=== PATIENT | male | born 1945 | race Caucasian/White ===

== ENCOUNTER → 2016-10-11 | Outpatient (CLI) | payer BC ==
[~2016-10-11] MED LIST: ALL180 PO; AMX500 PO; ASCA500 PO; ASPCH81; ATOR10TA88 PO; CALCTAB5 PO; CHOL100010 PO; CLC100 PO; FLNIN NAE; METR1GEL3; MULT-190 PO; MULT-506 PO; OMEG10007 PO; [UNRECOGNIZED DRUG - OTHER]; osteobiflex
--- NOTE | 2016-10-11 11:30 | DIAGNOSTIC IMAGING REPORT ---
LEFT HIP UNILATERAL MIN 2 VIEWS CLINICAL HISTORY: Left hip pain COMPARISON: None. DISCUSSION: There are mild osteoarthritic changes present. No fractures are visualized. There are no erosive or destructive changes. IMPRESSION: Mild degenerative change. No fractures or destructive lesions are visualized. Electronically signed by: Maikol Garcia M.D. 10/11/2016 11:28 AM Dictated Date/Time: 10/11/2016 11:28 AM
--- NOTE | 2016-10-11 11:35 | DIAGNOSTIC IMAGING REPORT ---
LEFT FOOT 3 VIEWS HISTORY: LEFT FOOT PAIN COMPARISON: Left foot 04/28/2015. FINDINGS: No acute fracture or dislocation. The Lisfranc joint is intact. 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 Mild periprosthetic lucency at the base of the proximal phalanx of the first toe. This demonstrates up to 2 mm of lucency. This has slightly progressed in the interval. Large dorsal osteophytes at the talonavicular articulation. Tiny plantar heel spur. The bones are osteopenic. Soft tissues are unremarkable. IMPRESSION: Slight progression of the periprosthetic lucency at the first MTP joint prosthesis. This favors loosening. Electronically signed by: Shukri Hdez M.D. 10/11/2016 11:34 AM Dictated Date/Time: 10/11/2016 11:31 AM
--- NOTE | 2016-10-11 11:50 | DIAGNOSTIC IMAGING REPORT ---
RIGHT HIP 2 VIEWS CLINICAL HISTORY: Right hip pain. Arthritis. FINDINGS: AP and frog-leg views of the right hip are compared to study dated 10/10/2014. The skeletal structures are osteopenic. No fracture is seen. There is moderate arthritic change in the right hip with bony sclerosis an loss of the joint space. Spurring is noted along the femoral head. The visualized right hemipelvis appears intact. Mild sclerotic change is noted in the right sacroiliac joint. The overlying soft tissues are within normal limits. There is atherosclerotic calcification of the right femoral artery. Large right pelvic phleboliths are observed. IMPRESSION: 1. No acute bony abnormality seen in the right hip. 2. Osteopenia and arthritic change as above. This has modestly progressed from the 2015 examination. Electronically signed by: Richard Dalal M.D. 10/11/2016 11:49 AM Dictated Date/Time: 10/11/2016 11:47 AM
== END | disposition home or self-care (01) ==
LOC: C.RDSM 11:04
PROVIDERS: ATTEND Internal Medicine
DX: M79.675 Pain in left toe(s) (principal); M25.551 Pain in right hip; M85.851 Other specified disorders of bone density and structure, right thigh; R93.7 Abnormal findings on diagnostic imaging of other parts of musculoskeletal system

== ENCOUNTER 2016-12-22 04:51 | Emergency (ER) | payer BC ==
[~2016-12-22] VITALS: Ht 182.9 cm; Wt 78.9 kg
[~2016-12-22 04:51] MED LIST changes: +ATOR10TA82 PO; -ATOR10TA88 PO
[2016-12-22 05:00] VITALS: TEMP 36.5; O2SAT 99; Ht 182.9 cm; Wt 78.9 kg
[2016-12-22] MEDS ORDERED: SODIUM CHLORIDE 0.9% 1000ML 1,000 ML IV STA (05:30)
[2016-12-22 05:46] LABS: BASO % 0.6 %; BASO ABS # 0.03 K/uL (0-0.2); COMPLETE YES; EOS % 3.3 %; HEMATOCRIT 43.2 % (42-52); IG% 0.4 %; LYMPH % 32.7 %; LYMPH ABS # 1.58 K/uL (1.2-3.4); MEAN CELL VOLUME 91.3 fL (80-100); MEAN CORPUSCULAR HEMOGLOBIN 29.6 pg (25-34); MEAN CORPUSCULAR HGB CONC 32.4 g/dl (32-36); MONO % 13.3 %; NEUT % 49.7 %; PLATELET COUNT 220 K/uL (130-400); RED BLOOD COUNT 4.73 M/uL (4.7-6.1); WHITE BLOOD COUNT 4.83 K/uL (4.8-10.8)
--- NOTE | 2016-12-22 06:04 | EMERGENCY ROOM VISIT NOTE ---
History Report prepared by Roger: Talita Grossman Under the Supervision of: Dr. Vicki Vela D.O. First contact with patient: 05:05 Chief Complaint: SYNCOPE Stated Complaint: SYNCOPE Nursing Triage Summary: Patient arrived ALS for evaluation of syncopal episode. Patient reports he woke up with cramps in his hamstrings and got up to walk it off. He got to the living room and started feeling fuzzy and tried lowering himself to the floor. Patient bumped left shoulder on the way down. Denies hitting head or LOC. Patient reports working outside yesterday but drank water during work. Patient had wine with dinner but also had water. Patient reports pain in left shoulder. History of Present Illness The patient is a 71 year old male who presents to the Emergency Room via ALS for concerns about a syncopal episode occurring a few minutes prior to arrival. He woke up with cramps in his hamstrings and got up to walk. He walked about 40 feet or so when he started to become lightheaded. He attempted to lower himself to the floor but lost consciousness. He bumped his left shoulder on the way down on a CD stand. He denies hitting his head or losing consciousness. As per , the patient could only say his name when EMS had first arrived. The patient's mental status is currently at baseline, as per . The patient reports that he worked outside all day yesterday. He also had wine for dinner last night. He does not think he kept himself hydrated. He currently reports soreness in the hamstrings from the cramps. He denies any chest pain, abdominal pain, or any other complaints. He denies any blood thinners or diuretics. Source of History: patient Onset: a few minutes prior to arrival Position: other (global) Quality: other (syncopal episode) Associated Symptoms: No LOC, No chest pain, No abdominal pain Review of Systems See HPI for pertinent positives & negatives. A total of 10 systems reviewed and were otherwise negative. Past Medical & Surgical Surgical Problems: (1) H/O foot surgery (2) H/O vasectomy (3) H/O wisdom tooth extraction Family History Patient reports no known family medical history. Social History Smoking Status: Never Smoker Marital Status: Occupation Status: retired Current/Historical Medications Scheduled Amoxicillin (Amoxil *), 500 MG PO DAILY Ascorbic Acid (Vitamin C *), 500 MG PO DAILY Aspirin (Aspirin Tab-Chewable *), DAILY Atorvastatin (Lipitor), 10 MG PO DAILY Calcium (Caltrate), 600 MG PO DAILY Cholecalciferol (Vitamin D), 2,000 INTER.UNIT PO DAILY Docusate Sodium (Colace *), 100 MG PO BID Fexofenadine Hcl (Veronica *), 180 MG PO DAILY Fluticasone Propionate (Flonase Nasal Weskan *), 2 SPRAYS MATEUS DAILY Multivitamin (Multivitamin), 1 TAB PO DAILY Ocuvite Preservision (Ocuvite Preservision), 1 TAB PO DAILY Miscellaneous Medications Fish Oil (Angwin-3), 1 CAP PO Metronidazole Hcl (Metrogel) [Plexion] [osteobiflex] Allergies Coded Allergies: Tetracyclines (Unverified Allergy, Mild, hives, throat closed, 01/17/12) Physical Exam Vital Signs Date Time Temp Pulse Resp B/P (MAP) Pulse Ox O2 Delivery O2 Flow Rate FiO2 12/22/16 06:29 46 16 139/82 99 Room Air 12/22/16 06:26 47 18 139/82 99 Room Air 12/22/16 05:00 36.5 48 18 113/74 99 Room Air 12/22/16 05:00 99 Room Air 12/22/16 04:59 50 Physical Exam HEENT: Head - normocephalic and atraumatic Pupils are equal, round, and reactive to light. Extraocular eye muscles are intact, and sclera are anicteric. Nose - moist nasal mucosa without discharge. Mouth - moist buccal mucosa. Oropharynx is nonerythematous and there is no tonsillar exudate or edema noted. Neck: Supple; no JVD, nuchal rigidity, cervical lymphadenopathy. Heart: Bradycardic rate and regular rhythm. There is a normal S1 and S2 with no murmurs, clicks, or gallops appreciated. Lungs: Clear to auscultation bilaterally with no wheezes, rales, or rhonchi. Abdomen: Soft, completely nontender, nondistended, with good bowel sounds. There are no palpable pulsatile masses or hepatosplenomegaly. There is no guarding, rigidity, or rebound noted. Back: Abrasion on the left shoulder. Extremities: No evidence of cyanosis, clubbing, or edema. There are easily palpable peripheral pulses. Skin: warm and dry with good turgor and no rashes. Medical Decision & Procedures Laboratory Results 12/22/16 05:30 Red Blood Count 4.73, Mean Corpuscular Volume 91.3, Mean Corpuscular Hemoglobin 29.6, Mean Corpuscular Hemoglobin Concent 32.4, Mean Platelet Volume 10.0, Neutrophils (%) (Auto) 49.7, Lymphocytes (%) (Auto) 32.7, Monocytes (%) (Auto) 13.3, Eosinophils (%) (Auto) 3.3, Basophils (%) (Auto) 0.6, Neutrophils # (Auto ) 2.40, Lymphocytes # (Auto) 1.58, Monocytes # (Auto) 0.64, Eosinophils # (Auto ) 0.16, Basophils # (Auto) 0.03 12/22/16 05:30 Test 12/22/16 05:30 12/22/16 06:15 White Blood Count 4.83 K/uL (4.8-10.8) Red Blood Count 4.73 M/uL (4.7-6.1) Hemoglobin 14.0 g/dL (14.0-18.0) Hematocrit 43.2 % (42-52) Mean Corpuscular Volume 91.3 fL (80-100) Mean Corpuscular Hemoglobin 29.6 pg (25-34) Mean Corpuscular Hemoglobin Concent 32.4 g/dl (32-36) Platelet Count 220 K/uL (130-400) Mean Platelet Volume 10.0 fL (7.4-10.4) Neutrophils (%) (Auto) 49.7 % Lymphocytes (%) (Auto) 32.7 % Monocytes (%) (Auto) 13.3 % Eosinophils (%) (Auto) 3.3 % Basophils (%) (Auto) 0.6 % Neutrophils # (Auto) 2.40 K/uL (1.4-6.5) Lymphocytes # (Auto) 1.58 K/uL (1.2-3.4) Monocytes # (Auto) 0.64 K/uL (0.11-0.59) Eosinophils # (Auto) 0.16 K/uL (0-0.5) Basophils # (Auto) 0.03 K/uL (0-0.2) RDW Standard Deviation 48.3 fL (36.4-46.3) RDW Coefficient of Variation 14.3 % (11.5-14.5) Immature Granulocyte % (Auto) 0.4 % Immature Granulocyte # (Auto) 0.02 K/uL (0.00-0.02) Anion Gap 8.0 mmol/L (3-11) Est Creatinine Clear Calc Drug Dose 86.0 ml/min Estimated GFR () 101.1 Estimated GFR (Non- 87.2 BUN/Creatinine Ratio 22.7 (10-20) Calcium Level 8.5 mg/dl (8.5-10.1) Total Bilirubin 0.2 mg/dl (0.2-1) Aspartate Amino Transf (AST/SGOT) 48 U/L (15-37) Alanine Aminotransferase (ALT/SGPT) 41 U/L (12-78) Alkaline Phosphatase 89 U/L (45-117) Total Protein 7.1 gm/dl (6.4-8.2) Albumin 3.7 gm/dl (3.4-5.0) Globulin 3.4 gm/dl (2.5-4.0) Albumin/Globulin Ratio 1.1 (0.9-2) Urine Color YELLOW Urine Appearance CLEAR (CLEAR) Urine pH 7.0 (4.5-7.5) Urine Specific Harrison 1.020 (1.000-1.030) Urine Protein NEG (NEG) Urine Glucose (UA) NEG (NEG) Urine Ketones TRACE (NEG) Urine Occult Blood NEG (NEG) Urine Nitrite NEG (NEG) Urine Bilirubin NEG (NEG) Urine Urobilinogen NEG (NEG) Urine Leukocyte Esterase NEG (NEG) Laboratory results per my review. Medications Administered Medications (Trade) Dose Ordered Sig/Delmi Route Start Time Stop Time Status Last Admin Dose Admin Sodium Chloride 1,000 ml @ 999 mls/hr Q1H1M STAT IV 12/22/16 05:30 12/22/16 06:30 DC 12/22/16 05:30 999 MLS/HR Procedure Sodium Chloride 1000 ml @ 999 mls/hr IV ECG Indication: syncope Rate (beats per minute): 48 Rhythm: sinus bradycardia Findings: no acute ischemic change, no ectopy Comparison ECG Date: January 17, 2012 Change: no significant change ED Course 0505: Past medical records reviewed. The patient was evaluated in room A02. A complete history and physical exam was performed. Laboratory studies were drawn as above. Patient was found to have normal blood pressure on screening and does not require follow-up. I attest that I have personally reviewed the patient's current medication list. 0530: Sodium Chloride 1000 ml @ 999 mls/hr IV 0614: I reevaluated the patient who is feeling much better. He drank 2 Gatorades and 2 glasses of water. He also urinated. I am waiting on the urine dip results. 0630: I discussed findings and results with him. He verbalized agreement of the treatment plan. He was discharged home. Medical Decision The patient presents to the Emergency Room for concerns about a syncopal episode. Differential diagnosis includes but is not limited to dehydration, cardiac dysrhythmia, heart block, syncope. His labs showed normal white count, stable H&H, elevated BUN at 20, creatinine at 0.8, glucose of 82, AST mildly elevated at 48. Urine dip shows trace ketones. This is a 71-year-old male patient who had a syncopal event at home after being awoken with leg cramps and attempting to get up and walk around. The patient was noted to be dehydrated with an elevated BUN and ketonuria. He received IV crystalloid therapy and was able to drink without any difficulty. Impression Primary Impression: Syncope Additional Impression: Dehydration Scribe Attestation The scribe's documentation has been prepared under my direction and personally reviewed by me in its entirety. I confirm that the note above accurately reflects all work, treatment, procedures, and medical decision making performed by me. Departure Information Dispostion Home / Self-Care Referrals Pramod Sutton M.D. (PCP) Forms HOME CARE DOCUMENTATION FORM, IMPORTANT VISIT INFORMATION Patient Instructions Dehydration, My [facility], Syncope, Syncope Tx Prevent Additional Instructions Rest. Take plenty of clear liquids, especially in warm weather. Use tylenol for any shoulder pain Problem Qualifiers
[2016-12-22 06:05] LABS: BUN/CREATININE RATIO 22.7 (10-20); CALCIUM 8.5 mg/dl (8.5-10.1); CREATININE 0.89 mg/dl (0.60-1.40); POTASSIUM 3.9 mmol/L (3.5-5.1)
[2016-12-22 06:08] LABS: ALB/GLOB RATIO 1.1 (0.9-2)
[2016-12-22 06:29] VITALS: BP 139/82; PULSE 46; O2SAT 99
[2016-12-22 06:30] LABS: URINE APPEARANCE CLEAR (CLEAR); URINE BILIRUBIN NEG (NEG); URINE COLOR YELLOW; URINE NITRITE NEG (NEG); UROBILINOGEN NEG (NEG)
[2016-12-22 06:42] LABS: MANUAL MICROSCOPIC REQUIRED? NO; REVIEW REQ? NO
== END 2016-12-22 06:29 | disposition home or self-care (01) ==
LOC: EDBD 04:51 → C.EDA 04:52
DX: R55 Syncope and collapse (principal); E86.0 Dehydration; R00.1 Bradycardia, unspecified; Z79.82 Long term (current) use of aspirin; Z79.899 Other long term (current) drug therapy

== ENCOUNTER → 2017-06-24 | Outpatient (CLI) | payer BC ==
--- NOTE | 2017-06-24 14:11 | DIAGNOSTIC IMAGING REPORT ---
RIGHT ELBOW 3 VIEWS CLINICAL HISTORY: Right elbow pain. FINDINGS: 3 views of the right elbow are compared to study dated 11/30/2008. The skeletal structures are osteopenic. No fracture is seen. The joint spaces of the elbow are well-maintained. There is no joint effusion. Mild dorsal soft tissue swelling is noted. IMPRESSION: There is no radiographic evidence of right elbow fracture. Electronically signed by: Richard Dalal M.D. 06/24/2017 2:10 PM Dictated Date/Time: 06/24/2017 2:07 PM
== END | disposition home or self-care (01) ==
LOC: C.RDSM 13:00
PROVIDERS: ATTEND Internal Medicine
DX: M25.521 Pain in right elbow (principal)

== ENCOUNTER 2020-11-16 12:22 | Observation (INO) ==
--- NOTE | 2020-11-16 13:18 | Emergency Department Note ---
History of Present Illness General Chief complaint: Abdominal Pain Stated complaint: RUQ Abd pain Time Seen by Provider: 11/16/20 13:01 Source: patient History of Present Illness Provider complaint: Right-sided abdominal pain Onset (ago): hour(s) Location: abdomen and right Radiation: other (Chest) Pain Consistency: + now resolved Current Pain Intensity: 0 Quality: + sharp Relieved By: + none Associated symptoms: + weakness (Generalized weakness); no cough, no diaphoresis, no fever/chills, no nausea/vomiting and no shortness of breath This is a 75-year-old male with a history of a hiatal hernia presenting with right-sided abdominal pain starting at approximately 11:15 AM today. The patient was taking a shower when this occurred. He did have breakfast earlier in the day which consisted of a low-fat smoothie. He states the pain was very sharp and located in the right upper abdomen. It did radiate into his lower chest and epigastric region. He states that it lasted for few minutes but he started to feel very lightheaded and weak and had to sit down. Eventually his symptoms subsided. Currently he states he has some discomfort to his lower chest which he describes as a muscle pull. His abdominal pain is completely resolved. He denies any history of cardiac disease. He states that he walks on a regular basis and does not get any chest or belly discomfort when he does so. He denies any fever, diaphoresis, cough, shortness of breath, vomiting, diarrhea, black or bloody stools, urinary symptoms or leg swelling or pain. Home Medications Medication Instructions Recorded Confirmed Type Caltrate + D3 Plus Minerals 1 tab PO DAILY 02/25/19 11/16/20 History Centrum Silver Men 1 tab PO DAILY 02/25/19 11/16/20 History PreserVision AREDS-2 1 tab PO AMHS 02/25/19 11/16/20 History amoxicillin 500 mg PO QAM 02/25/19 11/16/20 History ascorbic acid (vitamin C) [Vitamin 500 mg PO DAILY 02/25/19 11/16/20 History C] aspirin 81 mg PO Q2D 02/25/19 11/16/20 History atorvastatin 10 mg PO HS 02/25/19 11/16/20 History cetirizine [Zyrtec] 10 mg PO DAILY 02/25/19 11/16/20 History glucosamine-chondroitin [Osteo 1 tab PO BID 02/25/19 11/16/20 History Bi-Flex] metronidazole [Metrogel] 1 applic TOPICAL DAILY 02/25/19 11/16/20 History omega 5-mdl-vdw-fish oil [Fish Oil] 2 cap PO BID 02/25/19 11/16/20 History azelastine 137 mcg (0.1 %) nasal 1 spray INTRANASAL BID 06/05/20 11/16/20 History spray aerosol omeprazole 20 mg capsule,delayed 20 mg PO BID #180 cap 09/11/20 11/16/20 Rx release fluticasone propionate 93 1 spray INTRANASAL BID #16 ml 10/16/20 11/16/20 Rx mcg/actuation breath activated aerosol Allergies Allergy/AdvReac Type Severity Reaction Status Date / Time minocycline Allergy Severe HIVES/THROAT Verified 10/16/20 11:08 CLOSES Tetracyclines Allergy Severe hives, Verified 10/16/20 11:08 throat closed house dust mite Allergy Verified 10/16/20 11:08 Past Med/Surg History Medical History Cardiac murmur A CHILD Chronic sinusitis Cough post nasal drainage GERD (gastroesophageal reflux disease) Hyperlipemia Macular degeneration Osteoarthritis Surgical History History of cataract surgery RT/LEFT History of colonoscopy History of endoscopic sinus surgery History of esophagogastroduodenoscopy (EGD) History of herniorrhaphy RT INGUINAL History of sinus surgery Endoscopic Sinus Surgery, Right and Left sinuses, Right and Left Maxillary, Right and Left Total Ethmoidectomies - 08/24/20 - Dr. 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 and A total of 10 systems reviewed and were otherwise negative Physical Exam Vital Signs Vital Signs - 24 hr 11/16/20 12:29 11/16/20 12:30 11/16/20 12:41 Temperature 36.5 C Temperature Source Oral Pulse Rate 65 59 L 59 L Pulse Rate from SpO2 Sensor 58 L 58 L Respiratory Rate 18 17 12 Blood Pressure 148/86 H 127/83 Blood Pressure Mean 106 97 Pulse Oximetry 96 92 95 Oxygen Delivery Method Room Air Sepsis Recent Fever Within 48 Hours No Sepsis New/Unexplained Change in Mental Status No Sepsis Action Taken by Nursing No Action Required 11/16/20 12:50 11/16/20 13:00 11/16/20 13:01 Temperature Temperature Source Pulse Rate 60 62 61 Pulse Rate from SpO2 Sensor 58 L 61 60 Respiratory Rate 19 15 Blood Pressure 122/84 Blood Pressure Mean 96 Pulse Oximetry 92 94 90 Oxygen Delivery Method Sepsis Recent Fever Within 48 Hours Sepsis New/Unexplained Change in Mental Status Sepsis Action Taken by Nursing 11/16/20 13:10 11/16/20 13:20 11/16/20 14:22 Temperature Temperature Source Pulse Rate 56 L 54 L 54 L Pulse Rate from SpO2 Sensor 57 L 57 L 53 L Respiratory Rate 21 14 Blood Pressure 136/82 Blood Pressure Mean 100 Pulse Oximetry 95 94 94 Oxygen Delivery Method Sepsis Recent Fever Within 48 Hours Sepsis New/Unexplained Change in Mental Status Sepsis Action Taken by Nursing 11/16/20 14:30 11/16/20 14:40 11/16/20 14:50 Temperature Temperature Source Pulse Rate 54 L 51 L 54 L Pulse Rate from SpO2 Sensor 54 L 51 L 54 L Respiratory Rate 18 16 15 Blood Pressure 128/91 Blood Pressure Mean 103 Pulse Oximetry 94 94 94 Oxygen Delivery Method Sepsis Recent Fever Within 48 Hours Sepsis New/Unexplained Change in Mental Status Sepsis Action Taken by Nursing 11/16/20 15:00 11/16/20 15:01 11/16/20 15:10 Temperature Temperature Source Pulse Rate 49 L 50 L 54 L Pulse Rate from SpO2 Sensor 51 L 51 L 53 L Respiratory Rate 21 20 15 Blood Pressure 150/90 H Blood Pressure Mean 110 Pulse Oximetry 94 94 94 Oxygen Delivery Method Sepsis Recent Fever Within 48 Hours Sepsis New/Unexplained Change in Mental Status Sepsis Action Taken by Nursing 11/16/20 15:20 11/16/20 15:30 11/16/20 15:31 Temperature Temperature Source Pulse Rate 55 L 57 L 54 L Pulse Rate from SpO2 Sensor 56 L 58 L 56 L Respiratory Rate 15 23 14 Blood Pressure 147/114 H Blood Pressure Mean 125 Pulse Oximetry 94 95 95 Oxygen Delivery Method Sepsis Recent Fever Within 48 Hours Sepsis New/Unexplained Change in Mental Status Sepsis Action Taken by Nursing 11/16/20 15:47 11/16/20 15:50 Temperature Temperature Source Pulse Rate 55 L 52 L Pulse Rate from SpO2 Sensor 53 L Respiratory Rate 17 14 Blood Pressure Blood Pressure Mean Pulse Oximetry 94 Oxygen Delivery Method Sepsis Recent Fever Within 48 Hours Sepsis New/Unexplained Change in Mental Status Sepsis Action Taken by Nursing Constitutional: Vital signs reviewed. Eyes: Pupils are equal round reactive to light. Conjunctiva are noninjected. ENT: Pharynx is clear without erythema or exudate. Mucous membranes are moist. Neck supple without meningeal signs. Respiratory: Clear to auscultation bilaterally. Breath sounds are equal bilaterally. Cardiovascular: Regular rate and rhythm. No rubs or gallops. GI: Soft, nondistended and nontender. Bowel sounds are present. Musculoskeletal: No peripheral edema. No lower extremity tenderness. Integumentary: No cyanosis. or jaundice. Neurological: The patient is awake and alert. No focal deficits. Psychiatric: Normal affect. Not anxious appearing. Course Administered Medications Discontinued Medications Nitroglycerin (Nitroglycerin 2% Ointment 30gm Tube) 0.5 inch EXT NOW ONE Stop: 11/16/20 14:17 Last Admin: 11/16/20 14:22 Dose: 0.5 inch Documented by: [id number] Medical Decision Making Differential Diagnosis Cholelithiasis, cholecystitis, pancreatitis, GERD, unstable angina, RI Medical Records Attestation: I reviewed the patient's medical records. I did perform a limited focused review of portions of the patient's old chart on the electronic medical record. The patient was seen by Dr. Orourke of ENT for chronic sinusitis in August. Laboratory Data Attestation: I reviewed the patient's lab results. Result diagrams: 11/16/20 13:19 11/16/20 13:19 Lab Results 11/16/20 11/16/20 11/16/20 Range/Units 13:19 13:19 13:19 WBC 7.47 (4.8-10.8) K/uL RBC 4.40 L (4.7-6.1) M/uL Hgb 13.8 L (14.0-18.0) g/dL Hct 39.7 L (42-52) % MCV 90.2 (80-100) fL MCH 31.4 (25-34) pg MCHC 34.8 (32-36) g/dL RDW Std Deviation 45.2 (36.4-46.3) fL RDW Coeff of [place] 13.8 (11.5-14.5) % Plt Count 251 (130-400) K/uL MPV 10.3 (7.4-10.4) fL Immature Gran % (Auto) 0.3 % Neut % (Auto) 74.3 % Lymph % (Auto) 13.1 % [place] % (Auto) 10.8 % Eos % (Auto) 1.2 % Baso % (Auto) 0.3 % Neut # (Auto) 5.55 (1.4-6.5) K/uL Lymph # (Auto) 0.98 L (1.2-3.4) K/uL [place] # (Auto) 0.81 H (0.11-0.59) K/uL Eos # (Auto) 0.09 (0-0.5) K/uL Baso # (Auto) 0.02 (0-0.2) K/uL Immature Gran # (Auto) 0.02 (0.00-0.02) K/uL PT 10.8 (9.0-12.0) Seconds INR 1.1 (0.9-1.1) APTT 25.9 (21.0-31.0) Seconds PTT Ratio 1.0 Sodium 138 (136-145) mmol/L Potassium 3.8 (3.5-5.1) mmol/L Chloride 107 (98-107) mmol/L Carbon Dioxide 25 (21-32) mmol/L Anion Gap 6.0 (3-11) BUN 20 H (7-18) mg/dl Creatinine 0.71 (0.6-1.4) mg/dl Est Cr Clr Drug Dosing 111.6 ml/min Est GFR ( Amer) 107.9 Est GFR (Non-Af Amer) 93.1 BUN/Creatinine Ratio 28.2 H (10-20) Glucose 95 (70-99) mg/dl Calcium 8.4 L (8.5-10.1) mg/dl Total Bilirubin 0.4 (0.2-1) mg/dl AST 33 (15-37) U/L ALT 35 (12-78) U/L Alkaline Phosphatase 94 (45-117) U/L Troponin I < 0.015 (0-0.045) ng/ml Total Protein 7.0 (6.4-8.2) gm/dl Albumin 3.2 L (3.4-5.0) gm/dl Globulin 3.8 (2.5-4.0) gm/dl Albumin/Globulin Ratio 0.8 L (0.9-2) Lipase 212 (73-393) U/L Urine Color Urine Appearance (Clear) Urine pH (4.5-7.5) Ur Specific [place] (1.000-1.030) Urine Protein (Negative) Urine Glucose (UA) (Negative) Urine Ketones (Negative) Urine Blood (Negative) Urine Nitrite (Negative) Urine Bilirubin (Negative) Urine Urobilinogen (Negative) Ur Leukocyte Esterase (Negative) COVID-19 Eval Order SARS-CoV-2 (PCR) (Negative) Influenza Type A (PCR) (Neg) Influenza Type B (PCR) (Neg) RSV (RT-PCR) (Neg) 11/16/20 11/16/20 11/16/20 Range/Units 14:26 14:26 15:47 WBC (4.8-10.8) K/uL RBC (4.7-6.1) M/uL Hgb (14.0-18.0) g/dL Hct (42-52) % MCV (80-100) fL MCH (25-34) pg MCHC (32-36) g/dL RDW Std Deviation (36.4-46.3) fL RDW Coeff of [place] (11.5-14.5) % Plt Count (130-400) K/uL MPV (7.4-10.4) fL Immature Gran % (Auto) % Neut % (Auto) % Lymph % (Auto) % [place] % (Auto) % Eos % (Auto) % Baso % (Auto) % Neut # (Auto) (1.4-6.5) K/uL Lymph # (Auto) (1.2-3.4) K/uL [place] # (Auto) (0.11-0.59) K/uL Eos # (Auto) (0-0.5) K/uL Baso # (Auto) (0-0.2) K/uL Immature Gran # (Auto) (0.00-0.02) K/uL PT (9.0-12.0) Seconds INR (0.9-1.1) APTT (21.0-31.0) Seconds PTT Ratio Sodium (136-145) mmol/L Potassium (3.5-5.1) mmol/L Chloride (98-107) mmol/L Carbon Dioxide (21-32) mmol/L Anion Gap (3-11) BUN (7-18) mg/dl Creatinine (0.6-1.4) mg/dl Est Cr Clr Drug Dosing ml/min Est GFR ( Amer) Est GFR (Non-Af Amer) BUN/Creatinine Ratio (10-20) Glucose (70-99) mg/dl Calcium (8.5-10.1) mg/dl Total Bilirubin (0.2-1) mg/dl AST (15-37) U/L ALT (12-78) U/L Alkaline Phosphatase (45-117) U/L Troponin I (0-0.045) ng/ml Total Protein (6.4-8.2) gm/dl Albumin (3.4-5.0) gm/dl Globulin (2.5-4.0) gm/dl Albumin/Globulin Ratio (0.9-2) Lipase (73-393) U/L Urine Color Yellow Urine Appearance Clear (Clear) Urine pH 5.5 (4.5-7.5) Ur Specific [place] 1.010 (1.000-1.030) Urine Protein Negative (Negative) Urine Glucose (UA) Negative (Negative) Urine Ketones Trace H (Negative) Urine Blood Negative (Negative) Urine Nitrite Negative (Negative) Urine Bilirubin Negative (Negative) Urine Urobilinogen Negative (Negative) Ur Leukocyte Esterase Negative (Negative) COVID-[address] Eval [address] Cov[facility]Rsv at [facility] SARS-CoV-2 (PCR) NEGATIVE (Negative) Influenza Type A (PCR) Negative (Neg) Influenza Type B (PCR) Negative (Neg) RSV (RT-PCR) Negative (Neg) Imaging Data Radiologist's Impression: Gallbladder Ultrasound 11/16/20 13:10 US gallbladder CLINICAL HISTORY: Right upper quadrant abdominal pain. COMPARISON STUDY: CT of the abdomen and pelvis April 13, 2012. FINDINGS: This exam is compromised by suboptimal penetration. No hepatic lesions are identified. There is no biliary ductal dilatation. The common bile duct measures 5 mm in caliber. No gallstones are noted. There is no gallbladder wall thickening. There may be a small amount of sludge within the gallbladder. The pancreas is largely obscured by overlying bowel gas. IMPRESSION: 1. No gallstones or biliary ductal dilatation. 2. Small amount sludge within the gallbladder. No evidence for acute cholecystitis. 2. Largely obscured pancreas. ACT 112: Negative or not required by law. Electronically signed by: Balta Saldana M.D. 11/16/2020 1:51 PM Chest X-Ray 11/16/20 15:21 XR chest 1V portable HISTORY: Atypical Chest pain COMPARISON: Chest 08/18/2019. FINDINGS: A few left basilar linear densities favoring subsegmental atelectasis are scarring. Otherwise, lungs are clear. No pleural effusions. No pneumothorax. The heart is normal in size. IMPRESSION: Left basilar linear densities which favor scarring/atelectasis. Otherwise, no acute process within the chest. ACT 112: Negative or not required by law. Electronically signed by: Shukri Hdez M.D. 11/16/2020 3:52 PM ECG Data Attestation: I personally reviewed and interpreted this ECG as follows: Indication: + abdominal pain and + chest pain Rate (beats per minute): 55 Rhythm: + sinus bradycardia ECG [place]: + Normal ECG ST segments: no ST elevation ECG Findings: no PVCs MDM Narrative I did evaluate the patient as noted above. The patient is presenting with right-sided abdominal pain that radiated into his epigastric region and lower chest. He currently has only chest pain. He also had a near syncopal episode when he had the pain as well. IV access was established. I did place an order for continuous cardiac monitoring. The monitor showed normal sinus rhythm at a rate of 60. I did order and personally review the patient's 12-lead EKG as described above. He has no acute ischemic changes. I did order and personally reviewed the images of the patient's chest x-ray as described above. He has some scarring and atelectasis but otherwise no infiltrate. I did order a urine analysis. His urine is unremarkable. I did order and review the patient's blood work as noted in the electronic medical record. CBC demonstrates mild anemia with a hemoglobin at 13.8. His white count is not elevated. Electrolyte s, troponin and LFTs and lipase are unremarkable. I did order an ultrasound of the right upper quadrant. I did review the images myself as well as the radiology report as described above. He has some evidence of sludge to his gallbladder but no stones or signs of obstruction. I did reassess the patient. He complains of a mild chest discomfort in his lower chest. His heart score is a 4. I did recommend we hospitalize the patient for repeat cardiac enzymes and possible stress testing in the morning. He was agreeable with this plan. He was given Nitropaste to the anterior chest wall which improved his chest pain. He did receive aspirin prior to arrival in the ambulance. I did discuss case with hospitalist and child welfare caseworker. Impression & Plan Right sided abdominal pain, Near syncope, Acute chest pain Discharge Plan Visit Data Chief Complaint: Abdominal Pain Stated Complaint: RUQ Abd pain ED Provider: Hossein Garcia Discharge Problem: Right sided abdominal pain, Near syncope, Acute chest pain Patient Disposition: Being Evaluated by Hospitalist Forms Stand Alone Forms: My [facility] Prescriptions Prescriptions: No Action omeprazole 20 mg capsule,delayed release(DR/EC) 20 mg PO BID Qty: 180 RF: 3 azelastine 137 mcg (0.1 %) aerosol,spray 1 spray intranasal BID RF: 0 Xhance 93 mcg/actuation aerosol breath activated 1 spray intranasal BID Qty: 16 RF: 8 cetirizine [Zyrtec] 10 mg Tablet 10 mg PO DAILY RF: 0 atorvastatin 10 mg Tablet 10 mg PO HS RF: 0 amoxicillin 500 mg Tablet 500 mg PO QAM RF: 0 ascorbic acid (vitamin C) [Vitamin C] 500 mg Tablet 500 mg PO DAILY RF: 0 glucosamine-chondroitin [Osteo Bi-Flex] 250-200 mg Tablet 1 tab PO BID RF: 0 metronidazole [Metrogel] 1 % Gel 1 applic TOPICAL DAILY RF: 0 omega 9-iig-xch-fish oil [Fish Oil] 1,000 mg (120 mg-180 mg) Capsule 2 cap PO BID RF: 0 Centrum Silver Men 300-600-300 mcg Tablet 1 tab PO DAILY RF: 0 PreserVision AREDS-2 [id number] Capsule 1 tab PO AMHS RF: 0 Caltrate + D3 Plus Minerals 300 mg-800 unit -25 mg-0.5 mg Tablet 1 tab PO DAILY RF: 0 aspirin 81 mg Tablet,Delayed Release (Dr/Ec) 81 mg PO Q2D RF: 0 Referrals Referrals: Pramod Sutton MD [Primary Care Provider] -
[2020-11-16 13:36] LABS: Basophils # (auto) 0.02 K/uL (0-0.2); Basophils % (auto) 0.3 %; Eosinophils # (auto) 0.09 K/uL (0-0.5); Eosinophils % (auto) 1.2 %; Hematocrit (blood only) 39.7 % (42-52); Hemoglobin 13.8 g/dL (14.0-18.0); Immature Granulocytes # (auto) 0.02 K/uL (0.00-0.02); Immature Granulocytes % (auto) 0.3 %; Lymphocytes # (auto) 0.98 K/uL (1.2-3.4); Lymphocytes % (auto) 13.1 %; Mean Corpuscular Hemoglobin 31.4 pg (25-34); Mean Corpuscular Hgb Conc 34.8 g/dL (32-36); Mean Corpuscular Volume 90.2 fL (80-100); Mean Platelet Volume 10.3 fL (7.4-10.4); Monocytes # (auto) 0.81 K/uL (0.11-0.59); Monocytes % (auto) 10.8 %; Neutrophils # (auto) 5.55 K/uL (1.4-6.5); Neutrophils % (auto) 74.3 %; Platelet Count 251 K/uL (130-400); RDW Coefficient of Variation 13.8 % (11.5-14.5); RDW Standard Deviation 45.2 fL (36.4-46.3); White Blood Count 7.47 K/uL (4.8-10.8)
[2020-11-16 13:50] LABS: INR 1.1 (0.9-1.1); Partial Thromboplastin Time 25.9 Seconds (21.0-31.0); Prothrombin Time 10.8 Seconds (9.0-12.0)
--- NOTE | 2020-11-16 13:53 | Ultrasound Report ---
US gallbladder CLINICAL HISTORY: Right upper quadrant abdominal pain. COMPARISON STUDY: CT of the abdomen and pelvis April 13, 2012. FINDINGS: This exam is compromised by suboptimal penetration. No hepatic lesions are identified. Ther e is no biliary ductal dilatation. The common bile duct measures 5 mm in caliber. No gallstones are n oted. There is no gallbladder wall thickening. There may be a small amount of sludge within the gallb ladder. The pancreas is largely obscured by overlying bowel gas. IMPRESSION: 1. No gallstones or biliary ductal dilatation. 2. Small amount sludge within the gallbladder. No evidence for acute cholecystitis. 2. Largely obscured pancreas. ACT 112: Negative or not required by law. Electronically signed by: Balta Saldana M.D. 11/16/2020 1:51 PM
[2020-11-16 13:56] LABS: Alanine Aminotransferase 35 U/L (12-78); Albumin Level 3.2 gm/dl (3.4-5.0); Aspartate Aminotransferase 33 U/L (15-37); BUN Creatinine Ratio 28.2 (10-20); Blood Urea Nitrogen 20 mg/dl (7-18); Calcium 8.4 mg/dl (8.5-10.1); Carbon Dioxide 25 mmol/L (21-32); Chloride 107 mmol/L (98-107); Creatinine Clr Calc Pharmacy 111.6 ml/min; Est GFR (African American) 107.9; Est GFR (Non-African American) 93.1; Glucose 95 mg/dl (70-99); Lipase 212 U/L (73-393); Potassium 3.8 mmol/L (3.5-5.1); Sodium 138 mmol/L (136-145)
[2020-11-16 14:01] LABS: Albumin Globulin Ratio 0.8 (0.9-2); Alkaline Phosphatase 94 U/L (45-117); Bilirubin,Total 0.4 mg/dl (0.2-1); Globulin 3.8 gm/dl (2.5-4.0); Troponin I < 0.015 ng/ml (0-0.045)
[2020-11-16] MEDS ORDERED: NITROGLYCERIN 2% OINTMENT 30GM TUBE EXT ONE (14:16)
[2020-11-16 15:40] LABS: Influenza A virus by PCR Negative (Neg); Influenza B virus by PCR Negative (Neg); RSV by PCR Negative (Neg); SARS CoV2 RNA(COVID-19) InHosp NEGATIVE (Negative)
--- NOTE | 2020-11-16 15:48 | History & Physical Report ---
Date of Service November 16, 2020 Assessment & Plan (1) Atypical chest pain: Aspirin 324 mg given by EMS, continue his usual 81 mg every 2 days pending further cardiac work-up Lipid panel in a.m. Continue atorvastatin 10 mg. Continue nitroglycerin 1 inch 2% Observe overnight on med/telemetry to monitor for arrhythmia Rule out myocardial infarction with serial troponins Stress echo in a.m. assuming troponins are negative. Likely can be discharged tomorrow if chest pain-free and cardiac work-up negative (2) Biliary sludge: Possible cause of his admission with right upper quadrant pain. Normal LFTs and now pain-free therefore no further work-up recommended at this stage. Discussed with the patient if pain recurs, persistent or with fever, chills recommend returning to the ER. No plans on HIDA scan unless pain returns. (3) GERD (gastroesophageal reflux disease): Switch omeprazole to pantoprazole per hospital formulary. (4) Hyperlipidemia: Continue atorvastatin 10 mg p.o. at bedtime with lipid panel in a.m. (5) Acne rosacea: Continue amoxicillin p.o. and metronidazole gel Admission and Anticipated Discharge Date Admission Date: November 16, 2020 History of Present Illness Chief Complaint: Abdominal and chest pain Primary Care Provider: Pramod Sutton MD Dominic Burgos is a 75 year old male who presents to the ER with abdominal and chest pain. He reports sudden onset RUQ pain while showering this morning around 11-11:30am, pain in right side below ribs, initially subsided after a few minutes but then came back stronger. Moved across his superior abdomen and to his chest. Associated lightheadedness to the point of nearly fainting. He got out of the shower and sat on chair and put his head down and felt a little better but the chest pain continued. Therefore his called EMS. He was given aspirin x4 by EMS. While in the ER he is still having some dull chest pressure that is helped with the nitro patch given by ER. He does have a notable history of esophagitis with a small hiatal hernia seen by gastroenterology. He reports not having a problem with this since starting his omeprazole. No recent NSAID use. He feels his pain is very different to his previous hiatal hernia pain as it is never been in his chest. He notably drinks coffee x5/day. He does report drinking a coffee prior to having a shower. He is a former smoker, quit 1973, 2-3 pack/day before then. In the ER initial WBC, troponin, lipase within normal limits. Biliary ultrasound showing sludge only with no wall thickening suggestive of acute cholecystitis and normal LFTs. He was referred to medicine for admission ongoing management of chest pain rule out myocardial infarction. Allergies Allergy/AdvReac Type Severity Reaction Status Date / Time minocycline Allergy Severe HIVES/THROAT Verified 10/16/20 11:08 CLOSES Tetracyclines Allergy Severe hives, Verified 10/16/20 11:08 throat closed house dust mite Allergy Verified 10/16/20 11:08 Home Medications Medication Instructions Recorded Confirmed Type Caltrate + D3 Plus Minerals 1 tab PO DAILY 02/25/19 11/16/20 History Centrum Silver Men 1 tab PO DAILY 02/25/19 11/16/20 History PreserVision AREDS-2 1 tab PO AMHS 02/25/19 11/16/20 History amoxicillin 500 mg PO QAM 02/25/19 11/16/20 History ascorbic acid (vitamin C) [Vitamin 500 mg PO DAILY 02/25/19 11/16/20 History C] aspirin 81 mg PO Q2D 02/25/19 11/16/20 History atorvastatin 10 mg PO HS 02/25/19 11/16/20 History cetirizine [Zyrtec] 10 mg PO DAILY 02/25/19 11/16/20 History glucosamine-chondroitin [Osteo 1 tab PO BID 02/25/19 11/16/20 History Bi-Flex] metronidazole [Metrogel] 1 applic TOPICAL DAILY 02/25/19 11/16/20 History omega 2-iws-aod-fish oil [Fish Oil] 2 cap PO BID 02/25/19 11/16/20 History azelastine 137 mcg (0.1 %) nasal 1 spray INTRANASAL BID 06/05/20 11/16/20 History spray aerosol omeprazole 20 mg capsule,delayed 20 mg PO BID #180 cap 09/11/20 11/16/20 Rx release fluticasone propionate 93 1 spray INTRANASAL BID #16 ml 10/16/20 11/16/20 Rx mcg/actuation breath activated aerosol Past Med/Surg History Medical History Cardiac murmur A CHILD Chronic sinusitis Cough post nasal drainage GERD (gastroesophageal reflux disease) Hyperlipemia Macular degeneration Osteoarthritis Surgical History History of cataract surgery RT/LEFT History of colonoscopy History of endoscopic sinus surgery History of esophagogastroduodenoscopy (EGD) History of herniorrhaphy RT INGUINAL History of sinus surgery Endoscopic Sinus Surgery, Right and Left sinuses, Right and Left Maxillary, Right and Left Total Ethmoidectomies - 08/24/20 - Dr. Orourke History of tonsillectomy History of tooth extraction Hx of toe surgery RT/LEFT BIG TOE "IMPLANTS" Hx of vasectomy Family History Other No significant family history Denies family history of Crohn's disease Colorectal cancer Ulcerative colitis Social History Smoking Status: Former smoker Second Hand Exposure: Yes (hx); Hx Alcohol Use: Yes Alcohol type: wine Hx Substance Use: No Preferred Language: Sami Communication Ability: Effective Veneer Redrier Required: No Beliefs That Will Affect Care: None Current Living Situation: Spouse Current Living Situation Comment: Home with Kelsea Other Information That Helps Us Care for You: No Feels Safe at Home: Yes Safety Concerns: Feels Safe At This Time Assistive Devices: Glasses Review of Systems Review of Systems: All systems reviewed & are unremarkable except as noted in HPI & below Physical Exam Constitutional: WD/WN, vitals as above Eyes: + anicteric sclerae; normal pupil size ENMT: external ear and nose normal, oropharynx normal Neck: trachea midline Respiratory: normal respiratory effort, lungs clear to auscultation Cardiovascular: RRR, no murmur, no edema Chest (Breasts): Additional Comments: Pain not reproducible on palpation Gastrointestinal (Abdomen): normal bowel sounds, soft, nontender, no hepatosplenomegaly Musculoskeletal: no cyanosis or clubbing, extremities motor strength 5/5 Skin: no rashes, warm and dry Neurologic: moves all extremities and awake; not confused Psychiatric: A+Ox3, euthymic affect Genitourinary: no CVA tenderness Results & Data Results & Data ([facility]) Vital Signs (Past 12 Hours) Vital Signs Temp Pulse Resp BP Pulse Ox 11/16/20 14:40 51 L 16 94 11/16/20 14:30 54 L 18 128/91 94 11/16/20 14:22 54 L 14 136/82 94 11/16/20 13:20 54 L 21 94 11/16/20 13:10 56 L 95 11/16/20 13:01 61 15 90 11/16/20 13:00 62 122/84 94 11/16/20 12:50 60 19 92 11/16/20 12:41 59 L 12 95 11/16/20 12:30 59 L 17 127/83 92 11/16/20 12:29 36.5 C 65 18 148/86 H 96 Diagnostic Findings XR chest 1V portable IMPRESSION: Left basilar linear densities which favor scarring/atelectasis. Otherwise, no acute process within the chest. US gallbladder IMPRESSION: 1. No gallstones or biliary ductal dilatation. 2. Small amount sludge within the gallbladder. No evidence for acute cholecystitis. 2. Largely obscured pancreas. Medications Administered ER medications given: Nitroglycerin 0.5 inch paste ECG Indication: abdominal pain and chest pain Rate (beats per minute): 55 Rhythm: sinus bradycardia Comparison ECG Date: from (August 18, 2020) Change: no significant change Code Status & VTE Plan Code Status Full VTE Prophylaxis Plan VTE Prophylaxis will be ordered: No Reason for no VTE drug order: Treatment not indicated Reason for no VTE mechanical prophylaxis: Treatment not indicated PG Care Time/CCT Total # of Minutes Spent Total Time Spent with Patient: Total time spent is greater than 50% in coordination of care (as documented) at patient's floor/unit and/or counseling patient: Coding Level of Care Code 35424 OBS Care - Level 3 Diagnoses Atypical chest pain R07.89 Biliary sludge K83.8 GERD (gastroesophageal reflux disease) K21.9 Esophagitis presence: without esophagitis Hyperlipidemia E78.5 Acne rosacea L71.9 (1) GERD (gastroesophageal reflux disease) Esophagitis presence: without esophagitis Qualified Code(s): K21.9 - Gastro- esophageal reflux disease without esophagitis
--- NOTE | 2020-11-16 15:53 | XRay Report ---
XR chest 1V portable HISTORY: Atypical Chest pain COMPARISON: Chest 08/18/2019. FINDINGS: A few left basilar linear densities favoring subsegmental atelectasis are scarring. Otherwi se, lungs are clear. No pleural effusions. No pneumothorax. The heart is normal in size. IMPRESSION: Left basilar linear densities which favor scarring/atelectasis. Otherwise, no acute process within th e chest. ACT 112: Negative or not required by law. Electronically signed by: Shukri Hdez M.D. 11/16/2020 3:52 PM
[2020-11-16 15:55] LABS: Appearance Urine Clear (Clear); Bilirubin Urine Negative (Negative); Blood Urine Negative (Negative); Color Urine Yellow; Glucose Urine UA Negative (Negative); Ketones Urine Trace (Negative); Leukocyte Esterase Urine Negative (Negative); Nitrite Urine Negative (Negative); Protein Urine Negative (Negative); Urobilinogen Urine Negative (Negative); pH Urine 5.5 (4.5-7.5)
[2020-11-16] MEDS ORDERED: NITROGLYCERIN SL 0.4 MG/TAB TAB SL PRN (19:12)
[2020-11-16] MEDS ORDERED: ACETAMINOPHEN 325 MG TAB PO PRN (19:12)
[2020-11-16] MEDS ORDERED: NITROGLYCERIN 2% OINTMENT 30GM TUBE EXT SCH (19:12)
[2020-11-16] MEDS: AZELASTINE~ORDER AWAITING ACTION SCH ×2 (20:17→23:48)
[2020-11-16] MEDS: OMEGA-3 (PURIFIED FISH OIL) 1 GM CAP PO SCH (20:21)
[2020-11-16] MEDS: FLUTICASONE PROPIONATE NA SPR 16 GM BTL SCH (20:21)
[2020-11-16] MEDS: PANTOprazole 40 MG TAB PO SCH (20:22)
[2020-11-16] MEDS ORDERED: NON-FORMULARY MEDICATION (Vit C,E-Zn-Coppr-Lutein-Zeaxan [Preservision Areds-2] 250-200-40 PO SCH (21:00)
[2020-11-16] MEDS ORDERED: NON-FORMULARY MEDICATION (Glucosamine-Chondroitin [Osteo Bi-Flex] 250-200 mg Tablet) PO SCH (21:00)
[2020-11-16] MEDS ORDERED: ATORVASTATIN 10 MG TAB PO SCH (21:00)
[2020-11-16] MEDS ORDERED: Nursing to Pharmacy Communication SCH (23:45)
[2020-11-17] MEDS: NITROGLYCERIN 2% OINTMENT 30GM TUBE EXT SCH ×2 (02:26→10:45)
[2020-11-17 04:52] LABS: BUN Creatinine Ratio 20.2 (10-20); Blood Urea Nitrogen 15 mg/dl (7-18); Calcium 8.8 mg/dl (8.5-10.1); Carbon Dioxide 29 mmol/L (21-32); Chloride 111 mmol/L (98-107); Est GFR (African American) 104.9; Est GFR (Non-African American) 90.5; Glucose 87 mg/dl (70-99); Potassium 3.9 mmol/L (3.5-5.1); Sodium 141 mmol/L (136-145)
[2020-11-17 04:57] LABS: Chol HDL Ratio 3; Cholesterol 180 mg/dl (0-200); HDL Cholesterol 64 mg/dl; LDL Cholesterol Calculated 97 mg/dl; Triglycerides 97 mg/dl (0-150); Troponin I < 0.015 ng/ml (0-0.045); VLDL Cholesterol 19 mg/dl
--- NOTE | 2020-11-17 06:58 | Electrocardiogram Report ---
Test Reason : Blood Pressure : / mmHG Vent. Rate : 055 BPM Atrial Rate : 055 BPM P-R Int : 154 ms QRS Dur : 094 ms QT Int : 406 ms P-R-T Axes : -24 035 044 degrees QTc Int : 388 ms Sinus bradycardia Otherwise normal ECG When compared with ECG of 18-AUG-2020 08:51, No significant change was found Confirmed by Les Donis ([id number]) on 11/17/2020 6:57:53 AM Referred By: Confirmed By:Les Donis
[2020-11-17] MEDS: AZELASTINE~ORDER AWAITING ACTION SCH (08:39)
[2020-11-17] MEDS ORDERED: CETIRIZINE HCL 10 MG TABLET PO SCH (09:00)
[2020-11-17] MEDS ORDERED: ASPIRIN 81 MG ECTAB PO SCH (09:00)
[2020-11-17] MEDS ORDERED: CEROVITE ADV FORMULA TAB PO SCH (09:00)
[2020-11-17] MEDS ORDERED: AMOXICILLIN 500 MG CAP PO SCH (09:00)
[2020-11-17] MEDS ORDERED: ASCORBIC ACID 500 MG TAB PO SCH (09:00)
[2020-11-17] MEDS: OMEGA-3 (PURIFIED FISH OIL) 1 GM CAP PO SCH (10:33)
[2020-11-17] MEDS: FLUTICASONE PROPIONATE NA SPR 16 GM BTL SCH (10:34)
[2020-11-17] MEDS: PANTOprazole 40 MG TAB PO SCH (10:34)
--- NOTE | 2020-11-17 12:07 | XCELERA ---
[id number]_[id number]
--- NOTE | 2020-11-23 09:44 | Discharge Summary ---
Date of Service November 17, 2020 Admission HPI Per Admitting Provider Dominic Burgos is a 75 year old male who presents to the ER with abdominal and chest pain. He reports sudden onset RUQ pain while showering this morning around 11-11:30am, pain in right side below ribs, initially subsided after a few minutes but then came back stronger. Moved across his superior abdomen and to his chest. Associated lightheadedness to the point of nearly fainting. He got out of the shower and sat on chair and put his head down and felt a little better but the chest pain continued. Therefore his called EMS. He was given aspirin x4 by EMS. While in the ER he is still having some dull chest pressure that is helped with the nitro patch given by ER. He does have a notable history of esophagitis with a small hiatal hernia seen by gastroenterology. He reports not having a problem with this since starting his omeprazole. No recent NSAID use. He feels his pain is very different to his previous hiatal hernia pain as it is never been in his chest. He notably drinks coffee x5/day. He does report drinking a coffee prior to having a shower. He is a former smoker, quit 1973, 2-3 pack/day before then. In the ER initial WBC, troponin, lipase within normal limits. Biliary ultrasound showing sludge only with no wall thickening suggestive of acute cholecystitis and normal LFTs. He was referred to medicine for admission ongoing management of chest pain rule out myocardial infarction. Principal Diagnosis chest pain Discharge Exam Constitutional: WD/WN, vitals as above Eyes: + anicteric sclerae; normal pupil size ENMT: external ear and nose normal, oropharynx normal Neck: trachea midline Respiratory: normal respiratory effort, lungs clear to auscultation Cardiovascular: RRR, no murmur, no edema Chest (Breasts): Additional Comments: Pain not reproducible on palpation Gastrointestinal (Abdomen): normal bowel sounds, soft, nontender, no hepatosplenomegaly Musculoskeletal: no cyanosis or clubbing, extremities motor strength 5/5 Skin: no rashes, warm and dry Neurologic: moves all extremities and awake; not confused Psychiatric: A+Ox3, euthymic affect Genitourinary: no CVA tenderness Discharge Data Allergies Allergy/AdvReac Type Severity Reaction Status Date / Time minocycline Allergy Severe HIVES/THROAT Verified 10/16/20 11:08 CLOSES Tetracyclines Allergy Severe hives, Verified 10/16/20 11:08 throat closed house dust mite Allergy Verified 10/16/20 11:08 Consultations 11/16/20 14:46 ED Decision to Admit Stat Ordered Studies 11/16/20 13:10 US gallbladder Stat Hospital Course (1) Atypical chest pain: On admission: Aspirin 324 mg given by EMS, continue his usual 81 mg every 2 days pending further cardiac work-up Lipid panel in a.m. Continue atorvastatin 10 mg. Continue nitroglycerin 1 inch 2% Observe overnight on med/telemetry to monitor for arrhythmia Rule out myocardial infarction with serial troponins Stress echo in a.m. assuming troponins are negative. Likely can be discharged tomorrow if chest pain-free and cardiac work-up negative On discharge: Stress test was negative. No longer having abdominal pain. Will discharge. (2) Biliary sludge: Possible cause of his admission with right upper quadrant pain. Normal LFTs and now pain-free therefore no further work-up recommended at this stage. Discussed with the patient if pain recurs, persistent or with fever, chills recommend returning to the ER. No plans on HIDA scan unless pain returns. (3) GERD (gastroesophageal reflux disease): Switch omeprazole to pantoprazole per hospital formulary. (4) Hyperlipidemia: Continue atorvastatin 10 mg p.o. at bedtime with lipid panel in a.m. (5) Acne rosacea: Continue amoxicillin p.o. and metronidazole gel Total Time Total Time Spent Total Time Spent (In Minutes): 32 Total Time Includes: Examination of the Patient, Discharge Planning and Medication Reconciliation Discharge Plan Discharge Items Patient Disposition: Home - Self-Care Reason For Visit: CHEST PAIN RULE OUT SC Discharge Diagnosis: Chest pain rule out SC Activity: Resume your previous activity Non-emergency contact: Primary Care Provider Call non-emergency contact if: you have any medication questions Follow-up/Referrals: Pramod Sutton MD [Primary Care Provider] - 11/24/20 10:30 am Diet: Heart Healthy and Low Fat Addtl Attending Provider Instructions: You were worked up for chest pain. Your stress test was negative and this places you on low risk of having a heart attack. Will discharge you Please followup with primary care doctor in 1-2 weeks. Pending Studies at Discharge: No Stand-Alone Forms: My [facility], Smoking Cessation Medications and DC Order Prescriptions: New acetaminophen 325 mg Tablet 650 mg PO Q4H PRN (Reason: chest pain) Qty: 30 RF: 0 Continued omeprazole 20 mg capsule,delayed release(DR/EC) 20 mg PO BID Qty: 180 RF: 3 azelastine 137 mcg (0.1 %) aerosol,spray 1 spray intranasal BID RF: 0 Xhance 93 mcg/actuation aerosol breath activated 1 spray intranasal BID Qty: 16 RF: 8 cetirizine [Zyrtec] 10 mg Tablet 10 mg PO DAILY RF: 0 atorvastatin 10 mg Tablet 10 mg PO HS RF: 0 amoxicillin 500 mg Tablet 500 mg PO QAM RF: 0 ascorbic acid (vitamin C) [Vitamin C] 500 mg Tablet 500 mg PO DAILY RF: 0 glucosamine-chondroitin [Osteo Bi-Flex] 250-200 mg Tablet 1 tab PO BID RF: 0 metronidazole [Metrogel] 1 % Gel 1 applic TOPICAL DAILY RF: 0 omega 9-hnn-wiz-fish oil [Fish Oil] 1,000 mg (120 mg-180 mg) Capsule 2 cap PO BID RF: 0 Centrum Silver Men 300-600-300 mcg Tablet 1 tab PO DAILY RF: 0 PreserVision AREDS-2 [id number] mz-qlyc-jy-mg Capsule 1 tab PO AMHS RF: 0 Caltrate + D3 Plus Minerals 300 mg-800 unit -25 mg-0.5 mg Tablet 1 tab PO DAILY RF: 0 aspirin 81 mg Tablet,Delayed Release (Dr/Ec) 81 mg PO Q2D RF: 0 Discharge Orders: Discharge Order (Routine); Ordered 11/17/20 Ordered By: Amol Blake Admission Data Admit Date/Time: 11/16/20 16:40 Attending Provider: Amol Blake Admit Provider: Noé Wang Primary Care Provider: Pramod Sutton Other Interventions: Discharge Summary Assessment (RN) Last Done: 11/17/20 14:52 Coding Level of Care Code 14217 OBS Care - Discharge Diagnoses Atypical chest pain R07.89 Biliary sludge K83.8 GERD (gastroesophageal reflux disease) K21.9 Esophagitis presence: without esophagitis Hyperlipidemia E78.5 Acne rosacea L71.9
== END 2020-11-17 15:14 | disposition home or self-care (01) ==
LOC: 2N 12:22 → ED 12:22 → SUATTDRO 16:40 → 2N 18:06